=== PATIENT | female | born 1980 | race Caucasian/White ===

== ENCOUNTER → 2018-01-13 | Outpatient (CLI) | payer OTHER | END | disposition home or self-care (01) | LOC: CFH 08:42 | PROVIDERS: ATTEND Family Medicine | DX: R94.5 Abnormal results of liver function studies (principal); K76.0 Fatty (change of) liver, not elsewhere classified | CPT/HCPCS: 76705 ==

== ENCOUNTER → 2018-06-20 | Outpatient (CLI) | payer OTHER | END | disposition home or self-care (01) | LOC: CFH 14:46 | PROVIDERS: ATTEND Physical Medicine & Rehabilitation | DX: M51.27 Other intervertebral disc displacement, lumbosacral region (principal); M51.36 Other intervertebral disc degeneration, lumbar region; M54.16 Radiculopathy, lumbar region | CPT/HCPCS: 72148 ==

== ENCOUNTER → 2019-05-12 | Emergency (ER) | payer OTHER ==
[~2019-05-12] VITALS: Ht 160 cm; Wt 106.0 kg
[2019-05-12 23:10] VITALS: BP 131/76
== END ==
LOC: ED 23:08
DX: R07.89 Other chest pain (principal); B34.9 Viral infection, unspecified; I10 Essential (primary) hypertension
CPT/HCPCS: 36415; 71045; 71275; 80053; 81003; 81025; 82550; 84439; 84443; 84484; 85025; 85379; 86308; 93005; 99284; Q9967

== ENCOUNTER 2020-03-18 16:40 | Emergency (ER) | payer OTHER ==
[~2020-03-18] VITALS: Ht 160 cm; Wt 111.7 kg
[2020-03-18 16:43] VITALS: BP 166/82
[2020-03-18] MEDS ORDERED: HYDROcodone/APAP 5/325 TABLET ONE (17:15)
--- NOTE | 2020-03-18 17:17 | NUR ---
PATIENT COORDINATOR PER NOV. XRAY AT BEDSIDE.
[2020-03-18] MEDS ORDERED: HYDROcodone/APAP 5/325 TABLET PO PRN (17:30)
--- NOTE | 2020-03-18 17:32 | NUR ---
ALL RESULTS ARE BACK AT THIS TIME. CHART UP FOR RECHECK.
--- NOTE | 2020-03-18 17:53 | NUR ---
MD AT BEDSIDE TO UPDATE PT ON POC.
--- NOTE | 2020-03-18 18:08 | NUR ---
TECH AT BEDSIDE FOR BRACE AND CRUTCHES.
== END 2020-03-18 18:35 | disposition home or self-care (01) ==
LOC: ED 18:33
DX: S93.492A Sprain of other ligament of left ankle, initial encounter (principal); I10 Essential (primary) hypertension; X50.1XXA Overexertion from prolonged static or awkward postures, initial encounter; Y93.89 Activity, other specified; Y92.098 Other place in other non-institutional residence as the place of occurrence of the external cause; Y99.8 Other external cause status
CPT/HCPCS: 99283